=== PATIENT | female | born 1980 | race Caucasian/White ===

== ENCOUNTER → 2017-03-31 | Outpatient (CLI) | payer BC | END | disposition home or self-care (01) | LOC: GMAM 14:17 | PROVIDERS: ATTEND Family Medicine | DX: D64.9 Anemia, unspecified (principal) ==

== ENCOUNTER → 2017-05-26 | Outpatient (CLI) | payer BC | END | disposition home or self-care (01) | LOC: GMAM 14:53 | PROVIDERS: ATTEND Family Medicine | DX: D64.9 Anemia, unspecified (principal) ==

== ENCOUNTER → 2017-11-19 | Outpatient (CLI) | payer BC | LOC: GMAM 14:33 | PROVIDERS: ATTEND Family Medicine | DX: D64.9 Anemia, unspecified (principal) ==

== ENCOUNTER → 2018-01-20 | Outpatient (CLI) | payer BC ==
--- NOTE | 2018-01-20 15:38 | US ---
EXAM DESCRIPTION: Pelvic,Non-OB: Ultrasound. CLINICAL HISTORY: LEFT LOWER QUADRANT PAIN. Prior section. LMP 01/10/2018. 3, para 3. COMPARISON: Pelvic non-OB ultrasound 10/15/2013. TECHNIQUE: Transcutaneous scanning through the urine filled bladder. Endovaginal scanning. Paredes-scale and Doppler modes. FINDINGS: Uterus 9.2 x 5.7 x 5.0 cm. Endometrial thickness 8.7 mm. The myometrium appears heterogeneous. 11 x 8 x 6 mm fluid collection in the anterior myometrium abutting scar from prior section. The uterus is not retroverted. Cervix unremarkable.. Cul-de-sac contains no fluid. Right ovary 3.2 x 2.0 x 1.7 cm. Normal color and waveform Vascularity Doppler. Multiple follicles but no cysts. No adnexal mass or free fluid. Left ovary 3.0 x 2.1 x 2.0 cm. Normal color and waveform Vascularity Doppler. 1.8 cm follicle but no cysts. No adnexal mass or free fluid. IMPRESSION: 1. Normal size of uterus with no endometrial thickening. Small fluid collection in the anterior myometrium may be related to prior section. No wall thickening abnormal vascularity or abnormal appearance of the fluid. No fluid in the cul-de-sac. 2. Bilateral ovaries normal size. 1.8 cm follicle in the left ovary but no cysts bilaterally. Normal vascularity. No adnexal mass or free fluid. Electronically signed by: Janes Beckman MD 01/20/2018 3:37 PM CDT
== END ==
LOC: US 09:01
PROVIDERS: ATTEND Family Medicine
DX: R10.32 Left lower quadrant pain (principal)

== ENCOUNTER → 2018-04-06 | Outpatient (CLI) | payer BC | LOC: GMAM 15:02 | PROVIDERS: ATTEND Family Medicine | DX: D64.9 Anemia, unspecified (principal); E53.8 Deficiency of other specified B group vitamins; E55.9 Vitamin D deficiency, unspecified ==

== ENCOUNTER 2019-04-20 19:58 | Observation (INO) | payer BC ==
[2019-04-20] MEDS ORDERED: ASPIRIN TABLET 325 MG TAB PO ONE (20:14)
[2019-04-20] MEDS ORDERED: NITROGLYCERIN 0.4 MG 25 EA TAB SL ONE (20:15)
--- NOTE | 2019-04-20 20:35 | RAD ---
EXAM: Chest,1 View CLINICAL INDICATION: Chest pain COMPARISON: There is no previous study for comparison. FINDINGS: A single view of the chest was obtained. The heart size is normal. The pulmonary vascularity is unremarkable. The lungs are clear. There is no consolidation, infiltrate, pleural effusion, or pneumothorax. IMPRESSION: Normal chest radiograph. Electronically signed by: Oscar Davis MD 04/20/2019 8:34 PM CDT
[2019-04-20] MEDS ORDERED: ALUM & MAG HYDROX-SIMETHICONE 30 ML, LIDOCAINE VISCOUS 2% 15 ML PO ONE ×2 (20:47)
[2019-04-20] MEDS ORDERED: SODIUM CHLORIDE 0.9% 1000ML 1,000 ML IVS ONE (20:48)
[2019-04-20] MEDS ORDERED: LIDOCAINE HCL 2% (MOUTH-THROAT) 15 ML UD ONE (20:48)
[2019-04-20] MEDS ORDERED: ALUM & MAG HYDROX-SIMETHICONE 30 ML UD ONE (20:48)
[2019-04-20] MEDS ORDERED: IPRATROPIUM/ALBUTEROL 3 ML VIAL NEB ONE (21:45)
[2019-04-20] MEDS ORDERED: HYDROcodone 5MG/APAP 325MG 1 EA TAB PO ONE (21:45)
--- NOTE | 2019-04-20 23:59 | ED.PDOC ---
History of Present Illness - General Chief Complaint: Chest Pain/VT Stated Complaint: chest pain Time Seen by Provider: 04/20/19 20:00 Source: patient Exam Limitations: no limitations - History of Present Illness Initial Comments: the patient is a 38-year-old female presenting to the emergency room secondary to a mild chest tightness that started about 30-40 minutes prior to arrival while she was sitting at home. It is associated with a feeling in both arms of her arms being asleep. No true sensory changes. No real back pain. No nausea or vomiting. She has had some increased anxiety over the last couple of weeks. She does appear a little bit anxious currently. No definitive cardiac history however she reports that she has had episodes of chest pain several years ago. The source of it was never definitively found. During that workup it was found she had an abnormal EKG and she did undergo stress testing with Dr. Latif which revealed no significant cardiac pathology. She does not really describe chest discomfort as a pain. It is just to the left of the sternum. No real shortness of breath. It is not made worse with movement or exertion. It is not made worse with coughing. No vomiting. No syncope or near syncope. No palpitations.the patient has had significant gastritis issues in the past as well as significant iron deficiency in the past. Timing/Duration: 1/2 hour Severity: mild Improving Factors: nothing Worsening Factors: nothing Associated Symptoms: chest pain Allergies/Adverse Reactions: Allergies NO KNOWN ALLERGY Allergy (Verified 10/15/13 10:49) Review of Systems - Review of Systems Constitutional: States: no symptoms reported EENTM: States: no symptoms reported Respiratory: States: no symptoms reported Cardiology: States: see HPI Gastrointestinal/Abdominal: States: no symptoms reported Genitourinary: States: no symptoms reported Musculoskeletal: States: no symptoms reported Skin: States: no symptoms reported Neurological: States: anxiety, tingling Endocrine: States: no symptoms reported All other Systems: No Change from Baseline Past Medical History (General) - Patient Medical History Hx Cardiac Disorders: Yes - arrythmias Hx Congestive Heart Failure: No Surgical History: other - Vaccination History Hx Tetanus, Diphtheria Vaccination: Yes Hx Influenza Vaccination: Yes - Social History Hx Tobacco Use: No Hx Alcohol Use: No Family Medical History - Family History Mother Family History: Unknown Physical Exam - Physical Exam General Appearance: Alert, Anxious Eye Exam: bilateral normal Ears, Nose, Throat: hearing grossly normal, normal pharynx Neck: full range of motion, supple Respiratory: chest non-tender, lungs clear, normal breath sounds, no respiratory distress, no accessory muscle use Cardiovascular/Chest: normal peripheral pulses, regular rate, rhythm, no edema Peripheral Pulses: radial,right: 2+, radial,left: 2+, dorsalis pedis,right: 2+, dorsalis pedis,left: 2+ Gastrointestinal/Abdominal: non tender, soft Rectal Exam: deferred Back Exam: no CVA tenderness, no vertebral tenderness Extremity: normal range of motion, non-tender, normal inspection, no pedal edema, normal capillary refill 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, alert, oriented x 3, other - she is anxious Skin Exam: normal color Comments: Vital Signs - 24 hr 04/20/19 04/20/19 04/20/19 20:14 20:26 20:30 Temperature 98.7 F 98.7 F Pulse Rate Pulse Rate [ 90 Apical] Pulse Rate [ 86 92 H 77 left] Respiratory 18 18 18 Rate Blood Pressure 131/87 112/66 [left] O2 Sat by Pulse 98 98 Oximetry 04/20/19 04/20/19 04/20/19 20:45 20:46 21:00 Temperature Pulse Rate Pulse Rate [ 78 Apical] Pulse Rate [ 85 95 H left] Respiratory 18 18 16 Rate Blood Pressure 125/69 104/77 107/70 [left] O2 Sat by Pulse 98 98 98 Oximetry 04/20/19 04/20/19 04/20/19 22:00 22:05 23:00 Temperature Pulse Rate 89 Pulse Rate [ 84 75 Apical] Pulse Rate [ left] Respiratory 14 18 16 Rate Blood Pressure 118/75 114/73 [left] O2 Sat by Pulse 99 100 98 Oximetry 04/21/19 04/21/19 00:00 00:54 Temperature 98.7 F Pulse Rate 89 Pulse Rate [ 76 Apical] Pulse Rate [ 67 left] Respiratory 14 14 Rate Blood Pressure 111/70 113/69 [left] O2 Sat by Pulse 99 97 Oximetry Progress - Progress Progress: 04/21/19 01:17 the patient is a 38-year-old female presenting to the emergency room with chest tightness and tingling in her extremities that started at rest. Initial set of cardiac enzymes and set repeated 3 hours after showed no evidence of any troponin leak. Chest x-rays were reassuring. EKG does have some abnormalities but no ST segment elevation. She reports that her previous EKGs had some abnormalities. we do not have an old EKG here to compare to. Given the patient's history the patient is going to be placed in overnight for longer term observation and rule out. Symptoms appear to have significantly improved since her arrival. Nitroglycerin did not help any. The patient is given aspirin and Lovenox. No morphine has been required. she has received GI medications given her history of gastritis. She is resting comfortably at this time. Admitted for continued telemetry monitoring and symptomatic monitoring and repeat enzymes in 8 hours. Hopefully in the morning her primary care doctor will be able to send over an old EKG to compare to the current one. the patient does also appear to have some mild to moderate dehydration. She has received a liter of IV fluids and is feeling better after that. Tilt vital signs are borderline. Admit for continued care. 04/21/19 01:20 - Results/Orders Results/Orders: EKG shows normal sinus rhythm at 79 bpm. Left axis deviation. Poor R-wave progression. Nonspecific T wave changes in anterior leads. No definitive ST segment changes indicative of acute ischemia. No significant ST segment elevation. Normal QT interval. I do not have a previous EKG to compare to. Chest x-ray shows no obvious acute pathology. Laboratory Tests 04/20/19 04/20/19 04/20/19 00:05 20:11 20:11 WBC 5.2 RBC 4.67 Hgb 13.4 Hct 39.9 MCV 85.4 MCH 28.8 MCHC 33.7 RDW 12.5 Plt Count 271 MPV 8.0 Absolute Neuts (auto) 3.40 Absolute Lymphs (auto) 1.40 Absolute Monos (auto) 0.30 Absolute Eos (auto) 0.10 Absolute Basos (auto) 0.10 Neutrophils % 64.2 Lymphocytes % 27.2 Monocytes % 6.0 Eosinophils % 1.3 Basophils % 1.3 PT INR PTT (SP) D-Dimer, Quantitative Sodium 137 Potassium 3.7 Chloride 101 Carbon Dioxide 21 Anion Gap 18.7 H BUN 12 Creatinine 0.74 BUN/Creatinine Ratio 16.2 Random Glucose 135 H Serum Osmolality 275.6 Lactic Acid Calcium 9.4 Magnesium 2.0 Total Bilirubin 0.5 AST 17 ALT 17 Alkaline Phosphatase 37 L Creatine Kinase 66 82 CK-MB (CK-2) 1.3 1.2 CK-MB (CK-2) % Not Reportable Not Reportable Troponin I 0.02 < 0.02 B-Natriuretic Peptide 14.3 Serum Total Protein 7.5 Albumin 4.0 Globulin 3.5 Albumin/Globulin Ratio 1.1 TSH 3.95 Urine Color Urine Appearance Urine pH Ur Specific [place] Urine Protein Urine Glucose (UA) Urine Ketones Urine Blood Urine Nitrite Urine Bilirubin Urine Urobilinogen Ur Leukocyte Esterase Urine RBC Urine WBC Ur Epithelial Cells Urine Bacteria Urine HCG, Qual 04/20/19 04/20/19 04/20/19 20:11 20:11 20:18 WBC RBC Hgb Hct MCV MCH MCHC RDW Plt Count MPV Absolute Neuts (auto) Absolute Lymphs (auto) Absolute Monos (auto) Absolute Eos (auto) Absolute Basos (auto) Neutrophils % Lymphocytes % Monocytes % Eosinophils % Basophils % PT 9.9 INR 0.99 PTT (SP) 27.9 D-Dimer, Quantitative 0.19 Sodium Potassium Chloride Carbon Dioxide Anion Gap BUN Creatinine BUN/Creatinine Ratio Random Glucose Serum Osmolality Lactic Acid 1.3 Calcium Magnesium Total Bilirubin AST ALT Alkaline Phosphatase Creatine Kinase CK-MB (CK-2) CK-MB (CK-2) % Troponin I B-Natriuretic Peptide Serum Total Protein Albumin Globulin Albumin/Globulin Ratio TSH Urine Color Urine Appearance Urine pH Ur Specific [place] Urine Protein Urine Glucose (UA) Urine Ketones Urine Blood Urine Nitrite Urine Bilirubin Urine Urobilinogen Ur Leukocyte Esterase Urine RBC Urine WBC Ur Epithelial Cells Urine Bacteria Urine HCG, Qual Negative 04/20/19 20:18 WBC RBC Hgb Hct MCV MCH MCHC RDW Plt Count MPV Absolute Neuts (auto) Absolute Lymphs (auto) Absolute Monos (auto) Absolute Eos (auto) Absolute Basos (auto) Neutrophils % Lymphocytes % Monocytes % Eosinophils % Basophils % PT INR PTT (SP) D-Dimer, Quantitative Sodium Potassium Chloride Carbon Dioxide Anion Gap BUN Creatinine BUN/Creatinine Ratio Random Glucose Serum Osmolality Lactic Acid Calcium Magnesium Total Bilirubin AST ALT Alkaline Phosphatase Creatine Kinase CK-MB (CK-2) CK-MB (CK-2) % Troponin I B-Natriuretic Peptide Serum Total Protein Albumin Globulin Albumin/Globulin Ratio TSH Urine Color Yellow Urine Appearance Clear Urine pH 7.0 Ur Specific [place] 1.015 Urine Protein Negative Urine Glucose (UA) Negative Urine Ketones Negative Urine Blood Negative Urine Nitrite Negative Urine Bilirubin Negative Urine Urobilinogen 0.2 Ur Leukocyte Esterase Negative Urine RBC 0-1 Urine WBC 0-1 Ur Epithelial Cells 3-5 Urine Bacteria 0 Urine HCG, Qual Departure - Departure Clinical Impression: Dehydration Chest pain Qualifiers: Chest pain type: unspecified Qualified Code(s): R07.9 - Chest pain, unspecified Disposition: Admit Patient Departure Forms: ED Discharge - Pt. Copy, Patient Portal Self Enrollment Referrals: Shay Carrero MD [Primary Care Provider] - 1-2 Weeks Decision To Admit - Decistion To Admit Decision to Admit Reason: Medical Nature Decision to Admit Date: 04/21/19 Decision to Admit Time: 01:56
[2019-04-21] MEDS ORDERED: SUCRALFATE 1 GM/10 ML 1 GM UD PO ONE (01:09)
[2019-04-21] MEDS ORDERED: FAMOTIDINE 20 MG TAB PO ONE (01:10)
[2019-04-21] MEDS ORDERED: ENOXAPARIN SODIUM 60 MG/0.6 ML SYG SUBCU ONE (01:16)
[2019-04-21] MEDS ORDERED: SODIUM CHLORIDE 0.9% (FLUSH) 10 ML SYG IV PRN (05:14)
[2019-04-21] MEDS ORDERED: MORPHINE SULFATE INJ 10 MG/ML VIAL IV PRN (05:14)
[2019-04-21] MEDS ORDERED: NITROGLYCERIN 0.4 MG 25 EA TAB SL PRN (05:14)
[2019-04-21] MEDS ORDERED: ACETAMINOPHEN 325 MG TAB PO PRN (05:14)
[2019-04-21] MEDS ORDERED: IV SET AND CAP CHANGE INJ INJ SCH (05:30)
[2019-04-21] MEDS ORDERED: SODIUM CHLORIDE 0.9% (FLUSH) 10 ML SYG IV SCH (09:00)
--- NOTE | 2019-04-21 11:57 | US ---
EXAM DESCRIPTION: Gall Bladder: ULTRASOUND. CLINICAL HISTORY: ruq pain COMPARISON: None. TECHNIQUE: Transabdominal scanning: Paredes-scale and Doppler modes. FINDINGS: Gallbladder: normal size, shape, echogenicity; no intraluminal stones or sludge. No fluid around the gallbladder. No wall thickening. 2.1 mm. Non-tender with transducer pressure. Common bile duct: caliber 2.1 mm within normal limits. Liver: normal echogenicity; focal echogenic object well-circumscribed with acoustic shadowing most likely calcification. 10 x 9 mm. Contour liver capsule smooth where seen. No fluid around the liver. Intrahepatic biliary ducts normal caliber. Doppler hepatopedal flow portal vein.. Long axis right lobe 15.0 Pancreas: normal size and echogenicity. Duct not seen. Aorta: Proximal 1.6 cm normal caliber. Right kidney: Long axis is 9.6 cm.. Echogenic cortex measuring less than 10 mm thickness. Less echoes within the liver. No hydronephrosis or echogenic stones. 7 mm cyst lower pole right kidney. IMPRESSION: Liver unremarkable except for calcification. Gallbladder, common bile duct, pancreas, aorta negative. Normal caliber of the proximal abdominal aorta and IVC. Increased echogenicity of the kidney and thinning of the cortex. Correlate for medical renal disease. 7 millimeter cyst in the lower pole.. Electronically signed by: Janes Beckman MD 04/21/2019 11:55 AM CDT
[2019-04-21 13:37] VITALS: O2SAT 98
--- NOTE | 2019-04-21 15:40 | SSS ---
SUPERVISING PHYSICIAN: Harshad Bustillos MD DATE OF ADMISSION: 04/21/19 DATE OF DISCHARGE: 04/21/19 CHIEF COMPLAINT: Chest pain. HISTORY OF PRESENT ILLNESS: Ms. Sanchez is a 38-year-old female patient who presented to the Emergency Room last night due to experiencing some mild chest tightness that she noted started about 30 to 40 minutes prior to arrival to the Emergency Room. She associated it with feeling in both her arms like they were asleep, but no true numbness. She had no nausea, vomiting, no diaphoresis. She noted she has had some increased anxiety levels in the last week. She has no significant cardiac history. She had a stress test done in April of 2017 that showed no acute findings suggestive of ischemia. She noted the chest discomfort is not really a pain, more of a pressure and located more in the left sternum with no shortness of breath. She had no syncopal episodes, no palpitations associated with it. She does have a significant history of gastritis in the past with some iron deficiency anemia and has been on a proton pump inhibitor at one time, but is no longer taking any medications other than oral contraceptive. Her initial workup in the Emergency Room included CBC that was within normal limits with chemistries that were unremarkable with initial cardiac enzymes of 0.02, repeat being less than 0.02. Chest x-ray per radiologic interpretation showed no acute findings. Her EKG in the Emergency Room showed low voltage with poor R-wave progression and sinus rhythm at 79, but no specific T-wave changes or definitive indication of ischemia. EKG compared to previous was unchanged from April. In the Emergency Room, she was given GI cocktail, nitro and Carafate, which did relief some of her symptoms, but not completely. She was admitted. She was placed in observation overnight for close telemetry monitoring and further cardiac workup. She was placed in observation in stable condition. PAST MEDICAL HISTORY: 1. Gastroesophageal reflux disease. PAST SURGICAL HISTORY: 1. times 3. 2. Last colonoscopy was in the last 2 years with no significant findings. 3. Stress test in April of 2017 was within normal limits. HOME MEDICATIONS: 1. Oral control. ALLERGIES: NO KNOWN DRUG ALLERGIES. FAMILY HISTORY: No significant family history contributory to current illness. SOCIAL HISTORY: The patient lives between [place], [place]. She is . 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 She does not drink alcohol, does not smoke and does not use illicit drugs. REVIEW OF SYSTEMS: CONSTITUTIONAL: She denies fevers, chills, general malaise. HEENT: Negative for sore throats, earaches, nasal congestion, headaches, or vision changes. RESPIRATORY: Denies coughing, wheezing, shortness of breath. CARDIOVASCULAR: As noted in history of present illness. Denies any palpitations or syncopal episodes. GASTROINTESTINAL: Negative for nausea, vomiting, diarrhea. GENITOURINARY: Negative for dysuria, hematuria, polyuria. MUSCULOSKELETAL: Denies joint swelling. SKIN: Denies rashes, lesions, moles or unexplained changes. NEUROLOGIC: As noted in history of present illness, some anxiety with some tingling to the left upper extremity. No seizure activity, no history of ataxia or other neurological deficits. PHYSICAL EXAMINATION: VITAL SIGNS: On admission to the Emergency Room, temperature 98.7, pulse 86, blood pressure 131/87, respirations 18, oxygen saturation 98% on room air. On discharge, temperature was 97.8, pulse 75, blood pressure 102/75, respirations 14, oxygen saturation 99% on room air. Admission weight 60.9 kg. GENERAL: The patient was resting comfortably and appeared to be in no acute distress. She was well-nourished, well-hydrated. HEENT: Tympanic membranes clear bilaterally. Oropharynx is pink, moist without any lesions. NECK: Supple, nontender with full range of motion. No jugular venous distention noted. RESPIRATORY: Lungs clear to auscultation bilaterally without any rhonchi, wheezes or rales. CARDIOVASCULAR: Regular rate and rhythm without any appreciable murmurs, gallops, or rubs. ABDOMEN: Soft, nontender. Positive bowel sounds. EXTREMITIES: There is no edema. BACK: No CVA tenderness or vertebral tenderness. NEUROLOGIC: The patient is alert and oriented times three. Cranial nerves II- XII are grossly intact. Facial features are symmetrical. Extraocular movements are within normal limits. SKIN: Warm, pink and dry. LABORATORY: CBC was within normal limits with white count 5,300, no left shift. Coagulation studies were within normal limits including D-dimer. Chemistries just showed glucose 135, anion gap slightly elevated at 2.7, otherwise within normal limits. Liver functions were all within normal limits. Lipase within normal limits at 46. Lipid panel was within normal limits. She had 3 sets of troponins, all less than 0.02, as well as CPKs were within normal limits. Urinalysis was within normal limits. RADIOLOGY: Chest x-ray in the Emergency Room and per radiologic interpretation showed no acute findings. She then had a gallbladder ultrasound prior to discharge which showed unremarkable liver with gallbladder, common bile duct and pancreas noted to be negative, normal caliber of proximal aorta and inferior vena cava. There was note of increased echogenicity of the kidney and thinning of the cortex with a 7 mm cyst in the lower pole. EKG showed sinus rhythm with nonspecific T-wave changes with no acute changes compared to previous from April of 2017 with no concerning findings for acute ischemia or injury pattern and no changes between initial and EKG prior to discharge. HOSPITAL COURSE: Ms. Sanchez was admitted and placed in observation for close telemetry monitoring overnight. She had no recurrence of pain. She had no acute findings on EKGs or on telemetry. She was tolerating an oral diet, had no chest pain, no shortness of breath and it was felt she was clinically stable enough to be discharged to followup with Dr. Carrero in the outpatient setting. She was given in the Emergency Room, as noted above, a GI cocktail and some Carafate as well as proton pump inhibitor which did result in some change in her symptoms which she was describing more as a fullness, more like she was bloated. These symptoms had essentially resolved prior to discharge. She was to be discharged and followed up as noted below. ADMISSION DIAGNOSIS: 1. Chest pain, rule out. 2. Chronic gastroesophageal reflux disease, not currently on a proton pump inhibitor. DISCHARGE DIAGNOSIS: 1. Chest pain without any acute findings of cardiac injury including negative troponins, negative EKGs. 2. Chronic gastroesophageal reflux disease, likely contributing to #1 with symptoms resolving with treatment. PLAN: Ms. Sanchez is discharged on same date as admission on 04/21/[address] Carrero scheduled on 04/27/19 at 1400. She is to resume her home medications as directed and return to the hospital should she have any concerning symptoms. Diet was to resume usual diet as tolerated. Activity to increase as tolerated. Medications prescribed on discharge included: 1. Nitroglycerin as directed, no refills, #1 bottle. 2. Protonix 40 mg q. daily, #30, no refills. There was attempt to do an MRI of the neck with concerns for possible radiculopathy related to her left upper extremity tingling, however, this is pending, awaiting preauthorization from her insurance, which can be done through Dr. Carrero's office in followup. DISPOSITION: The patient is discharged to home. CONDITION ON DISCHARGE: Stable and improved. #[id number] [facility]
[2019-04-21 18:12] VITALS: TEMP 98.1
[2019-04-21 18:18] VITALS: BP 119/70
[2019-04-22] MEDS ORDERED: ASPIRIN TABLET 325 MG TAB PO SCH (09:00)
== END 2019-04-21 14:45 | disposition home or self-care (01) ==
LOC: ER 19:58 → MS 04-21 02:42
PROVIDERS: ADMIT Nurse Practitioner; ATTEND Nurse Practitioner Family
DX: R07.89 Other chest pain (principal); K21.9 Gastro-esophageal reflux disease without esophagitis; E86.0 Dehydration; F41.9 Anxiety disorder, unspecified; N28.1 Cyst of kidney, acquired; Z79.3 Long term (current) use of hormonal contraceptives
CPT/HCPCS: 96372; J7030; J1650; J7620; 85379; 82553 ×3; 80053; 81025; 80061; 36415 ×4; 81001; 85025; 82550 ×3; 83690; 83735; 85730; 85610; 84443; 84484 ×3; 83880; 83605; 71045; 76705; 94640; 99285; 93005 ×3; G0378

== ENCOUNTER → 2019-04-26 | Outpatient (CLI) | payer BC | LOC: GMAM 14:22 | PROVIDERS: ATTEND Family Medicine | DX: M25.50 Pain in unspecified joint (principal); R07.9 Chest pain, unspecified ==

== ENCOUNTER → 2019-04-29 | Outpatient (CLI) | payer BC ==
--- NOTE | 2019-04-30 16:23 | MRI ---
EXAM DESCRIPTION: Cervical Spine: MRI. CLINICAL HISTORY: 38 years Female RADICULOPATHY CERVICAL REGION COMPARISON: Cervical radiographs 26 April 2019. TECHNIQUE: Multiplanar, high-field MRI, multiple sequences, non-contrast Cervical spine. FINDINGS: C5-C6: Minimal disc desiccation. Posterior 4 mm protrusion abutting the right C6 nerve in the right ventral cord. Minimal mass effect on the cord. Moderate canal narrowing. Mild right neural foraminal narrowing. Left neuroforamen is patent. Facets unremarkable. C2-3 through C6-7 discs are minimally desiccated with disc space is maintained. No significant bulging. Canal and neural foramina are patent. Facets are unremarkable. Normal signal in the C7-T1 and T1-2 discs with no bulging. Disc spaces preserved. Canal and neural foramina are patent. Facet joints unremarkable. Spinal alignment C4-C6. No cord compression or cord edema. Atlantoaxial joint unremarkable.. Base of the cerebellar tonsils is just above the foramen magnum. Paravertebral soft tissues small lymph nodes abutting the parotid and submandibular glands and also in the bilateral carotid spaces and paravertebral spaces.. Vertebral bodies are not compressed at any level. Otherwise normal marrow signal in the remaining vertebral bodies and the posterior elements. IMPRESSION: 1. Right posterior focal bulge or small protrusion of the C5-C6 disc impressing on the cord and abutting the exiting right C6 nerve. Near stenosis of the right side of the canal and narrowing of the right neural foramen. 2. Desiccation of the superior and mid discs with preservation of the disc spaces and no significant bulging. No canal or neural foraminal stenosis. Electronically signed by: Janes Beckman MD 04/30/2019 4:21 PM CDT
== END ==
LOC: MRI 13:01
PROVIDERS: ATTEND Family Medicine
DX: M50.122 Cervical disc disorder at C5-C6 level with radiculopathy (principal)